=== PATIENT | female | born 1960 | race Caucasian/White ===

== ENCOUNTER 2018-01-30 13:11 | Emergency (ER) | payer SELFPAY ==
[2018-01-30 14:16] LABS: #Basophils 0.1 thou/uL (0.0-0.2); #Eosinphils 0.1 thou/uL (0.0-0.7); #Lymphocytes 1.7 thou/uL (1.20-3.40); #Monocytes 0.3 thou/uL (0.11-0.59); #Neutrophils 3.4 thou/uL (1.40-6.50); %Basophils 1.4 % (0.0-1.0); %Lymphocytes 30.3 % (21.0-51.0); %Monocytes 6.1 % (0.0-10.0); %Neutrophils 60.2 % (42.0-75.0); Hemoglobin 14.3 g/dL (12.0-16.0); Mean Corpuscular HGB CONC 33.4 g/dL (32.0-36.0); Mean Corpuscular Hemoglobin 29.6 pg (27.0-31.0); Mean Corpuscular Volume 88.5 fl (81.0-99.0); Mean Platelet Volume 6.9 fL (7.4-10.4); Platelet Count 211 thou/uL (130-400); RBC Distribution Width 12.8 % (11.5-14.5); Red Blood Cell (RBC) Count 4.83 mill/uL (4.20-5.40); White Blood Cell (WBC) Count 5.6 thou/uL (4.8-10.8)
[2018-01-30 14:35] LABS: ALT (SGPT) 20 U/L (8-55); AST (SGOT) 18 U/L (5-34); Albumin 4.1 g/dL (3.5-5.0); Alkaline Phosphatase 100 U/L (40-150); Anion Gap 11 mmol/L (10-20); BUN (Urea Nitrogen) 19 mg/dL (9.8-20.1); Bilirubin, Total 0.3 mg/dL (0.2-1.2); Calc. Creatinine Clearance 0 mL/min (70-130); Calcium 9.7 mg/dL (7.8-10.44); Carbon Dioxide 26 mmol/L (22-29); Chloride 106 mmol/L (98-107); Estimated GFR-MDRD 84; Globulin 2.9 g/dL (2.4-3.5); Glucose 87 mg/dL (70-105); Potassium 4.6 mmol/L (3.5-5.1); Sodium 138 mmol/L (136-145)
[2018-01-30 14:37] LABS: Bilirubin Negative (Negative); Blood, Urine Negative (Negative); Clarity CLEAR (Clear); Glucose, Urine (Dipstick) Negative (Negative); Leukocyte Moderate (Negative); Nitrite Negative (Negative); Pregnancy Test - Urine (BHCG) Negative (Negative); Pregu Control Background? CLEAR/WHITE (CLR/WHITE); Pregu Control Bar Appear? YES (CONTROL BAR); Protein, Urine (Dipstick) Negative (Neg-Trace); Urobilinogen 0.2 mg/dL (0.2-1.0)
[2018-01-30 14:38] LABS: Bacteria/HPF Rare-Few HPF (None Seen); Hyaline Casts/LPF 0-3 HYALINE CAST LPF (0-3 Hyaline); Pathc Cast-AUWi Flag 0.29 (0-2.49)
[2018-01-30 14:47] LABS: RBC/HPF 0-3 HPF (0-3)
--- NOTE | 2018-01-30 15:07 | CT ---
CT OF THE ABDOMEN AND PELVIS: Date: 01/30/18 COMPARISON: None. HISTORY: Sharp right low back/flank pain, history of kidney stones. TECHNIQUE: Serial axial CT imaging at 5 mm intervals from lung bases through pubic symphysis without contrast. C oronal reformatted imaging obtained. FINDINGS: The lack of contrast media limits assessment of the viscera, bowel vascular structures, and for lymph adenopathy. Imaged lung bases are unremarkable. Cholecystectomy clips are present. The superior aspec t of the liver dome is not fully imaged. Imaged hepatic parenchyma unremarkable. The spleen, pancreas , adrenal glands, and right kidney are unremarkable. There is a punctate, nonobstructing stone in the mid pole of the left kidney. There is no hydronephrosis on either side. There is no evidence for obs tructive uropathy on either side. There are a few scattered sigmoid diverticula with no evidence for diverticulitis. There is no eviden ce for bowel inflammatory change or obstruction. Appendix appears grossly unremarkable. Osseous structures demonstrate degenerative change of the hips, pubic symphysis, and bilateral sacroi liac joints. There is multilevel lower lumbar spine facet hypertrophic change with no acute osseous a bnormality evident. IMPRESSION: No evidence for obstructive uropathy or nephrolithiasis on the right. Nonobstructing stone mid pole l eft kidney. POS: [facility]
[2018-01-30] MEDS ORDERED: HYDROmorphone 0.5 MG/0.5 ML SYRINGE ONE (15:12)
== END 2018-01-30 17:28 | disposition home or self-care (01) ==
LOC: ERS 13:11
DX: N39.0 Urinary tract infection, site not specified (principal); I10 Essential (primary) hypertension; F41.9 Anxiety disorder, unspecified; F32.9 Major depressive disorder, single episode, unspecified; Z79.899 Other long term (current) drug therapy
CPT/HCPCS: 36415; 74176; 80053; 81003; 81015; 81025; 85025; 96374; J1170